=== PATIENT | female | born 1985 ===

== ENCOUNTER 2020-09-24 23:02 | Emergency (ER) | payer MEDICAID ==
[~2020-09-24] VITALS: Ht 175.3 cm; Wt 93.2 kg
[2020-09-24] MEDS ORDERED: ipratropium/albuterol 3ml nebule NEB ONE (23:10)
[2020-09-24] MEDS ORDERED: predniSONE 20 mg tablet PO ONE (23:10)
[2020-09-25] MEDS ORDERED: ALB0.5UD IH (00:34)
[2020-09-25] MEDS ORDERED: PRED20TA PO (00:34)
[2020-09-25] MEDS ORDERED: albuterol 2.5 MG/3 ML nebule NEB ONE (00:35)
[2020-09-25 01:00] VITALS: BP 124/76
== END 2020-09-25 01:23 | disposition home or self-care (01) ==
LOC: ER 23:04
DX: J45.901 Unspecified asthma with (acute) exacerbation (principal); R06.02 Shortness of breath; F17.200 Nicotine dependence, unspecified, uncomplicated; Z79.899 Other long term (current) drug therapy
CPT/HCPCS: 94640; 99284; J7512; 94760; 99283